=== PATIENT | female | born 1950 | race Caucasian/White ===

== ENCOUNTER 2017-05-28 09:18 | Day surgery (SDC) | payer BC ==
[~2017-05-28] VITALS: Ht 157.5 cm; Wt 64.0 kg
[2017-05-28] MEDS ORDERED: albumin (human) 25% 100 ML IV solution IV PRN (09:40)
[2017-05-28] MEDS ORDERED: oxyCODONE IR 5mg (immed. release) tablet PO PRN (09:40)
[2017-05-28] MEDS ORDERED: normal saline 1000ml 1,000 ML IV PRN (09:40)
[2017-05-28 11:03] VITALS: BP 108/55
[2017-05-28] MEDS ORDERED: LEVO200T8 PO (11:27)
[2017-05-28] MEDS ORDERED: LISI-600 PO (11:27)
[2017-05-28] MEDS ORDERED: ASPI81TA52 PO (11:27)
[2017-05-28] MEDS ORDERED: FURO40TA4 PO (11:27)
[2017-05-28] MEDS ORDERED: AMIT25TA10 PO (11:27)
[2017-05-28] MEDS ORDERED: MULT1TAB74 PO (11:27)
[2017-05-28] MEDS ORDERED: MAGN500C16 PO (11:27)
[2017-05-28] MEDS ORDERED: INSU100C10 SQ (11:27)
[2017-05-28] MEDS ORDERED: POTA10CA44 PO (11:27)
[2017-05-28] MEDS ORDERED: INSU100V9 SQ (11:27)
[2017-05-28] MEDS ORDERED: TRAM50TA2 PO (11:27)
[2017-05-28] MEDS ORDERED: CALC600T12 PO (11:27)
== END 2017-05-28 09:45 | disposition home or self-care (01) ==
LOC: SSTAY O 09:18
PROVIDERS: ATTEND Radiology Diagnostic Radiology
DX: R14.0 Abdominal distension (gaseous) (principal); E03.9 Hypothyroidism, unspecified; I10 Essential (primary) hypertension; E11.9 Type 2 diabetes mellitus without complications; K21.9 Gastro-esophageal reflux disease without esophagitis; Z90.710 Acquired absence of both cervix and uterus; Z90.49 Acquired absence of other specified parts of digestive tract; Z90.89 Acquired absence of other organs; Z85.07 Personal history of malignant neoplasm of pancreas; Z88.6 Allergy status to analgesic agent; Z88.1 Allergy status to other antibiotic agents; Z88.8 Allergy status to other drugs, medicaments and biological substances; Z85.71 Personal history of Hodgkin lymphoma; Z79.82 Long term (current) use of aspirin; Z79.4 Long term (current) use of insulin; Z98.890 Other specified postprocedural states; Z79.899 Other long term (current) drug therapy
CPT/HCPCS: 76705; J7030; A6257

== ENCOUNTER 2018-04-16 22:25 | Inpatient (IN) | payer MEDICARE, OTHER, BC | END 2018-04-19 16:45 | disposition home or self-care (01) | LOC: SUR 3N 23:07 → ER 22:25 | DX: I82.402 Acute embolism and thrombosis of unspecified deep veins of left lower extremity (principal); E43 Unspecified severe protein-calorie malnutrition; N39.0 Urinary tract infection, site not specified; C81.90 Hodgkin lymphoma, unspecified, unspecified site; L03.115 Cellulitis of right lower limb; L03.116 Cellulitis of left lower limb; E03.9 Hypothyroidism, unspecified; Z85.07 Personal history of malignant neoplasm of pancreas; E11.9 Type 2 diabetes mellitus without complications ==